=== PATIENT | female | born 1980 | race Caucasian/White ===

== ENCOUNTER 2017-01-10 10:53 | Emergency (ER) | payer MEDICAID ==
[~2017-01-10] VITALS: Ht 165.1 cm; Wt 60.0 kg
[2017-01-10 12:18] VITALS: BP 130/82
== END 2017-01-10 12:18 | disposition home or self-care (01) ==
LOC: ED 10:53
DX: Z76.0 Encounter for issue of repeat prescription (principal); F41.9 Anxiety disorder, unspecified; Z88.0 Allergy status to penicillin; Z88.5 Allergy status to narcotic agent

== ENCOUNTER 2017-03-11 16:54 | Emergency (ER) | payer MEDICAID ==
[~2017-03-11] VITALS: Ht 165.1 cm; Wt 65.8 kg
[2017-03-11 16:59] VITALS: BP 119/78
== END 2017-03-11 18:36 | disposition home or self-care (01) ==
LOC: ED 16:54
DX: N39.0 Urinary tract infection, site not specified (principal); R51 Headache; F41.9 Anxiety disorder, unspecified; Z79.899 Other long term (current) drug therapy

== ENCOUNTER 2017-06-13 13:15 | Emergency (ER) | payer MEDICAID ==
[~2017-06-13] VITALS: Ht 165.1 cm; Wt 69.0 kg
[2017-06-13 14:45] VITALS: BP 99/60
== END 2017-06-13 14:45 | disposition home or self-care (01) ==
LOC: ED 13:15
DX: O26.891 Other specified pregnancy related conditions, first trimester (principal); F32.9 Major depressive disorder, single episode, unspecified; F41.9 Anxiety disorder, unspecified; Z3A.00 Weeks of gestation of pregnancy not specified; Z88.0 Allergy status to penicillin; Z88.5 Allergy status to narcotic agent